=== PATIENT | female | born 1985 | race Caucasian/White ===

== ENCOUNTER 2017-11-14 10:22 | Emergency (ER) | payer MEDICAID ==
[~2017-11-14] VITALS: Ht 165.1 cm; Wt 64.0 kg
[2017-11-14 10:52] VITALS: BP 101/72
== END 2017-11-14 16:17 | disposition home or self-care (01) ==
LOC: ER 10:22
DX: B34.9 Viral infection, unspecified (principal); R51 Headache; F17.200 Nicotine dependence, unspecified, uncomplicated
CPT/HCPCS: 99281